=== PATIENT | female | born 1960 | race Caucasian/White ===

== ENCOUNTER 2018-05-13 00:28 | Outpatient (CLI) | payer OTHER, SELFPAY ==
--- NOTE | 2018-05-13 07:45 | DI.MAMMO_ITS ---
SYMPTOM/DIAGNOSIS: SCREENING, Z12.31 MAMMOGRAMS: Mammograms were interpreted according to the usual protocol including computer analysis with CAD system, tomosynthesis and C view imaging. The breasts are heterogenously dense. There are scattered bilateral benign appearing microcalcifications in both breasts. No dominant mass or clumped microcalcification is seen. No gross interval change in appearance in comparison with examinations including 08/2016. CONCLUSION: No specific evidence of malignancy at this time. Routine screening examinations are suggested at yearly intervals in this age group according to the ACS/ACR guidelines. Category 1. Breast density, category C. MQSA ASSESSMENT OF FINDINGS: Negative. Category 1. Patient will receive a letter notifying them of these results. Bi-RADS category C. The breasts are heterogeneously dense, which may obscure small masses.
== END 2018-05-13 00:48 ==
PROVIDERS: PCP Family Medicine; Visit Provider Family Medicine
DX: Z12.31 Encounter for screening mammogram for malignant neoplasm of breast (principal)
CPT/HCPCS: 77063; 77067

== ENCOUNTER 2018-07-06 16:48 | Emergency (ER) | payer OTHER, SELFPAY ==
[2018-07-06 16:53] VITALS: BP 124/64; PULSE 76; RESP 20; TEMP 36.6; O2SAT 98
--- NOTE | 2018-07-06 16:59 | DI.RAD_ITS ---
SYMPTOMS/DIAGNOSIS: RT SCAPULA, TRAUMA WITH DEFORMITY RIGHT SCAPULA AND PA AND LATERAL CHEST: There is a comminuted fracture seen of the distal right clavicle just medial to the acromioclavicular joint. The acromioclavicular joint is well maintained. The medial clavicular fragment is superiorly displaced. The heart size and pulmonary vasculature are within normal limits. The lungs are clear. No effusions or pneumothoraces are identified. IMPRESSION: Comminuted fracture of the lateral right clavicle with superior displacement of the medial fracture fragment. No acute pulmonary process.
[2018-07-06] MEDS: Acetaminophen 500 MG TAB 1000 MG PO (17:34)
[2018-07-06] MEDS: Ibuprofen 800 MG TAB PO (17:36)
--- NOTE | 2018-07-06 18:05 | DI.VRAD_ITS ---
Addendum created by Stewart Fuller MD on 07/06/2018 6:08:58 PM EDT Please note that upon review of the scapula films performed concomitantly, it is noted that the acromioclavicular distance is preserved and that the displacement observed in this chest x-ray is related to a severely comminuted fracture at the distal right clavicle. Please review scapula films performed concomitantly for further details. Initial report created on 07/06/2018 6:05:04 PM EDT EXAM: XR Chest, 2 Views EXAM DATE/TIME: 07/06/2018 5:03 PM CLINICAL HISTORY: 58 years old, female; Injury or trauma; Fall; Initial encounter; Blunt trauma (contusions or hematomas) TECHNIQUE: Imaging protocol: XR of the chest, 2 views. COMPARISON: No relevant prior studies available. FINDINGS: Lungs: Unremarkable. No consolidation. Pleural space: Unremarkable. No pleural effusion. No pneumothorax. Heart/Mediastinum: Unremarkable. No cardiomegaly. Bones/joints: There is significantly increased right acromioclavicular distance (34 mm). There is question of a small comminuted fracture of the right distal clavicle. There is soft tissue swelling about the right shoulder. No other acute skeletal abnormality grossly noted. IMPRESSION: 1. Right acromioclavicular injury/dislocation, as detailed above. Consider correlation with dedicated right shoulder films. 2. No acute cardiopulmonary pathology otherwise noted. Dictated and Authenticated by: Stewart Fuller MD. Ordering:LARRY Turner MD
--- NOTE | 2018-07-06 18:07 | DI.VRAD_ITS ---
EXAM: XR Right Scapula EXAM DATE/TIME: 07/06/2018 5:03 PM CLINICAL HISTORY: 58 years old, female; Injury or trauma; Fall; Initial encounter TECHNIQUE: Imaging protocol: XR Right scapula, complete. COMPARISON: CR XR CHEST 2V PA LATERAL 07/06/2018 5:43 PM FINDINGS: Bones/joints: In these films it is better appreciated that the acromioclavicular joint is preserved with a acromioclavicular distance of 5 mm. There is a severely comminuted fracture of the distal clavicle with cranial displacement of the proximal clavicle approximately 1.3 cm. No evidence of glenohumeral joint dislocation. No other acutely displaced fractures are appreciated. Soft tissues: There is soft tissue swelling about the shoulder. IMPRESSION: Severely comminuted and displaced fracture of the distal clavicle, as detailed above. Dictated and Authenticated by: Stewart Fuller MD. Ordering:LARRY Turner MD
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
[2018-07-06 18:52] VITALS: BP 128/75; PULSE 69; RESP 14; TEMP 37.2; O2SAT 99
[2018-07-06] MEDS: HYDROcodone 5/Acetaminophen 325 TAB PO (19:55)
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
== END 2018-07-06 20:00 | disposition home or self-care (01) ==
PROVIDERS: Emergency Provider Student in an Organized Health Care Education/Training Program; PCP Family Medicine
DX: S42.031A Displaced fracture of lateral end of right clavicle, initial encounter for closed fracture (principal); S43.101A Unspecified dislocation of right acromioclavicular joint, initial encounter; V18.0XXA Pedal cycle driver injured in noncollision transport accident in nontraffic accident, initial encounter; Y93.55 Activity, bike riding
CPT/HCPCS: 90471; 99253; 99284; 71046; 73010; 99285; L3650

== ENCOUNTER 2018-07-06 21:03 | Observation (INO) | payer OTHER, SELFPAY ==
[2018-07-07] VITALS (9 sets, daily range): BP systolic 88–117; BP diastolic 42–73; PULSE 63–80; RESP 12–18; TEMP 35–37; O2SAT 96–99
[2018-07-07] MEDS: Lactated Ringers 1,000 ML 80 ML IV (06:40)
--- NOTE | 2018-07-07 07:02 | HPE_ITS ---
Date of service: 07/07/18 Time of Service: 06:56 Assessment and Plan (1) Displaced fracture of lateral end of right clavicle: Current visit: Yes Status: Acute Pao is a 58-year-old with a comminuted and displaced fracture of the lateral end of the right clavicle. There is significant displacement with likely disruption of the CC ligaments. The skin is tethered and puckered and therefore would benefit from operative stabilization as there is a risk of skin necrosis. I had a long discussion yesterday and again today about the technical details of the surgery. The lateral fragment is really very small. I am quite concerned about the ability to have any reliable fixation of that piece. My plan will be to bridge the AC joint which would help stabilize the CC ligaments and the small fragments of the lateral clavicle. This will have to be removed at a later date. If I am able to identify bony or soft tissue components of the CC ligaments and the lateral piece is large enough to accept good fixation to the plate, then we may be able to avoid the AC joint. However, I find this unlikely. I did review the surgical details in length. I discussed the risk of the procedure to include bleeding, infection, pain, stiffness, numbness over the anterior chest, damage to nerves and vessels, pneumothorax, malunion, nonunion, hardware prominence, hardware failure, loss of reduction, blood clot, need for repeat procedures. She is n.p.o. and will proceed with surgery today. If you tolerate surgery well she can go home later today. Qualifiers: Encounter type: initial encounter Fracture type: closed Qualified Code(s): S42.031A - Displaced fracture of lateral end of right clavicle, initial encounter for closed fracture History of Present Illness Chief Complaint: Right Shoulder Pain Narrative: Pao is a 58-year-old who was seen yesterday in the emergency department. She had a significantly displaced, comminuted, and intra-articular lateral clavicle fracture. I had a long discussion with Pao about treatment options and recommended operative stabilization of this fracture especially since there is some skin tenting. Given the our last night, I recommended performing in the morning. She elected to go home prior to coming back to the hospital for the surgery. She is here this morning to be admitted for surgical fixation of her right clavicle fracture. While she was home she denies any new symptoms. She does have pain with motion but otherwise it is been well controlled with Tylenol and ibuprofen. She denies any numbness or tingling although she has a slight feeling to the shoulder area. She denies any head or neck pain. No headaches. Review of Systems Review of Systems All systems reviewed & are unremarkable except as noted in HPI and below PFSH Social History Smoking/Tobacco Use Status: Never Alcohol Intake: current Alcohol Intake frequency: 0-2 drinks per day Alcohol type: wine Drug use: Never Substance use type: does not use Caregiver/Support person: No Household members: spouse and children Housing: house Pets and animals: No Sexually active: No Do you think of yourself as: straight/heterosexual Current gender identity: female What is your relationship status?: How often do you talk on the phone with friends or family?: twice per week How often do you get together with friends or relatives?: once per week How often do you attend lutheran or congregation services?: 1-3 times per year Do you belong to any clubs or organized social groups?: yes Panel score (0-1 are the most socially isolated patients): 3 What type of physical activity do you participate in: other Details: spinning and yoga Duration: 45-60 minutes/day Frequency: 3-4 times per week Niya/Gnosticism: Restorationist Special niya needs: No Do you feel safe at home: Yes Do you feel safe in your relationship?: Yes Meds Home Medications Medication Instructions Recorded Confirmed Type aspirin [Aspirin Low-Strength] 81 mg PO DAILY tab-cap 07/01/14 07/06/18 History calcium carbonate-vitamin D3 1 tab PO BID #60 tab-cap 07/07/15 07/06/18 History Allergies Allergy/AdvReac Type Severity Reaction Status Date / Time No Known Allergies Allergy Unverified 07/06/18 16:57 Exam Narrative Exam Narrative: Comfortably sitting in a chair. Head is normocephalic and atraumatic. Breathing comfortably without notable difficulty or work. Right radial pulse is regular. Right shoulder shows continuing ecchymosis. There is puckering of the posterior skin of the shoulder with palpable distal clavicle underneath. No further breaks the skin. No active bleeding. Sensation intact light touch over the axillary, median, radial, ulnar nerves.
--- NOTE | 2018-07-07 07:19 | DI.RAD_ITS ---
SYMPTOMS/DIAGNOSIS: RT CLAVICLE FRACTURE RIGHT CLAVICLE IN THE OR: Fluoroscopy Time: 37.2 sec Fluoroscopy was utilized by Dr. Gutiérrez during the reduction and internal fixation of the right clavicular fracture. Sideplate and screws are seen transfixing the fracture which appears well aligned. Please refer to the procedure report for complete details.
[2018-07-07] MEDS: Bupivacaine 0.5% Pres-Free 30 ML VIAL (09:49)
--- NOTE | 2018-07-07 10:24 | DSE_ITS ---
Date of service: 07/07/18 Time of Service: 12:24 DS: Diagnosis Discharge Diagnosis (1) Displaced fracture of lateral end of right clavicle: Status: Acute Discharge Plan Disposition Patient Disposition: HOME Condition: Good Discharge Details Reason For Visit: COMMINUTED DISTAL CLAVICLE FRACTURE Admit Date/Time: 07/06/18 21:03 Admit Provider: Evan Gutiérrez Attending Provider: Evan Gutiérrez [facility] Course: Pao was brought into the hospital for operative fixation of a distal clavicle fracture with significant displacement and threatening of the skin. She was admitted on the morning of surgery. She tolerated procedure well and was returned to the medical surgical floor. She was stable following surgery with good pain control. She is thus deemed ready for discharge home. Home Meds and New Rx's Prescriptions: New hydrocodone-acetaminophen 5-325 mg tablet 1 tab PO Q6H PRN PRN (Reason: pain) Qty: 4 RF: 0 acetaminophen 500 mg tablet 500 mg PO Q6H PRN PRN (Reason: pain) Qty: 60 RF: 3 ibuprofen 600 mg tablet 600 mg PO TID PRNQty: 60 RF: 3 Continued aspirin [Aspirin Low-Strength] 81 MG tablet,chewable 81 mg PO DAILY RF: 0 calcium carbonate-vitamin D3 1 EACH tablet 1 tab PO BID Qty: 60 RF: 0 Discharge Instructions Additional Instructions: Activity: You should stay in the sling for the first 2 weeks. You may come out of the sling for gentle motion and hygiene but should largely remain in the sling to allow the incision site to heal. Gentle motion of the elbow, hand, wrist, and fingers is okay and encouraged after the first few days, but KEEP THE ELBOW SUPPORTED. You may apply ice directly over the incision/dressing. Medications: - You should take Tylenol and Ibuprofen around the clock. - You have been prescribed Hydrocodone for breakthrough pain. Dressings: - The initial surgical dressing should stay in place for 3 days. It can stay on for longer but if it is soiled or gets too wet, you may remove it and replace with some dry gauze and tape. - You may shower after 3 days and get the wound wet. To protect the dressing, you can place some cling wrap over the incision and avoid direct spray to the incision/wound. Follow-up: 10-14 days Stand Alone Forms: Nursing Discharge Form Referrals: Evan Gutiérrez MD [ [facility] STAFF PHYSICIAN] - (Call Sunday to schedule a follow-up appointment) Activity:: Stay in sling except for hygiene. Equipment/Supplies:: No Equipment Needed Diet:: As Tolerated Discharge Orders Discharge Orders: Discharge Order (Routine); Ordered 07/07/18 Ordered By: Evan Gutiérrez Discharge Data Discharge Date/Time-TO BE ENTERED AT DEPARTURE: 07/07/18 11:42 DS: Data Vitals/I&O Vitals and I&O: Vital Signs Temperature 36.4 C L 07/07/18 07:18 Temperature Source Tympanic 07/07/18 07:18 Pulse 67 07/07/18 07:18 Pulse Rhythm Regular 07/07/18 07:18 Respiratory Rate 18 07/07/18 07:18 Respiratory Effort Non-Labored 07/07/18 07:18 Respiratory Depth Normal 07/07/18 07:18 Respiratory Pattern Normal 07/07/18 07:18 Blood Pressure 117/73 07/07/18 07:18 Pulse Oximetry 97 07/07/18 07:18 Oxygen Delivery Method Room Air 07/07/18 07:18 Oxygen Flow Rate 0 07/07/18 07:18 Pain Level 2 07/07/18 07:18 Intake & Output 07/06/18 07/06/18 07/07/18 11:59 23:59 11:59 Intake Total 1000 / 1000 Output Total 100 / 100 Balance 900 / 900 Weight 53.524 kg Intake: IV 1000 / 1000 Output: Estimated Blood Loss 100 / 100 Other: Urine Appearance Clear [facility] Medical History 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 Brother No problems noted. Brother No problems noted. Daughter No problems noted. Daughter No problems noted. Social History Smoking/Tobacco Use Status: Never Alcohol Intake: current Alcohol Intake frequency: 0-2 drinks per day Alcohol type: wine Drug use: Never Substance use type: does not use Caregiver/Support person: No Household members: spouse and children Housing: house Pets and animals: No Sexually active: No Do you think of yourself as: straight/heterosexual Current gender identity: female What is your relationship status?: How often do you talk on the phone with friends or family?: twice per week How often do you get together with friends or relatives?: once per week How often do you attend moravian or roman catholic services?: 1-3 times per year Do you belong to any clubs or organized social groups?: yes Panel score (0-1 are the most socially isolated patients): 3 What type of physical activity do you participate in: other Details: spinning and yoga Duration: 45-60 minutes/day Frequency: 3-4 times per week Niya/Pentecostal: Restorationism Special niya needs: No Do you feel safe at home: Yes Do you feel safe in your relationship?: Yes
--- NOTE | 2018-07-09 10:09 | ROE_ITS ---
DATE OF SURGERY: July 07, 2018 PREOPERATIVE DIAGNOSIS: Comminuted lateral clavicle fracture, right side. POSTOPERATIVE DIAGNOSIS: Same. SURGERY: Open reduction and internal fixation with bridge plating of the distal clavicle onto the ac romion. SURGEON: Evan Gutiérrez M.D. TICKET SALES AGENT: Pop Marvin PA-C ANESTHESIA: General. FINDINGS: There was a significantly comminuted lateral clavicle fragment. The AC joint was intact a nd the ligaments of the AC joint were intact. There was comminution seen start at 8 mm from the dist al end of the clavicle. There was some inferior fragmentation and some anterior fragmentation. The medial clavicle portion was tethered through the trapezius musculature. The comminution at the level of the fracture site made reduction quite difficult. The lateral clavicle piece was difficult to re duce. Therefore I used a bridge plate technique from the clavicle onto the acromion. COMPLICATIONS: None. DISPOSITION: The patient was awakened from anesthesia and taken to the PACU in a stable condition. INDICATION FOR PROCEDURE: Pao is a 58-year-old who was mountain biking yesterday and fell directly onto the right shoulder. She suffered a displaced lateral clavicle fracture. There was significant displacement of the medial clavicular portion, representing a complete rupture of the CC ligaments. There was also tenting of the skin and therefore I recommended operative fixation. I reviewed the r isks of the procedure to include bleeding, infection, pain, stiffness, damage to nerves and vessels, damage to muscles and tendons, malunion, nonunion, arthritis, hardware prominence, hardware failure, need for repeat procedures, blood clot. Despite these risks, she elected to proceed. PROCEDURE DESCRIPTION: Pao was greeting in the preoperative holding area. Her identity was [facility]. The site was previously marked upstairs in the hospital room and the consent was signed there a s well. Her history and physical was previously performed. She was then taken back to the Operating Room. She was placed in the supine position. A general anesthetic was administered. She was then positioned in the beach chair position. All bony prominences were well padded. The left arm was pl aced on a well-padded arm skelton. The head was placed in the neutral position with a foam head holde r and secured. The right arm was placed into her lap. The right arm was then prepped with ChloraPre p and draped in a standard fashion. Prophylactic antibiotics in the form of Cefazolin were given. A time-out was performed for safe surgery. An approximately 12 cm incision was made along Gene's lines over the anterior aspect of the clavicl e and where the clavicle should be located given the significant posterior superior displacement. Th e soft tissues were injected with 0.5% Bupivacaine. The incision was taken down through the skin sha rply. Deeper dissection was done bluntly and there were no branches of the supraclavicular nerves id entified. The platisma was incised with electrocautery and this was taken down straight onto the cla vicle. There was notable stripping of the distal aspect of the medial clavicle piece. This piece jodi bravo punctured through the trapezius muscle and stuck on the fascia. It was able to be reduced out of t he fascia quite easily. There was comminution superiorly. There was a small spike drifting anterior ly, which also wedged from superior lateral to inferior medial. There was an inferior piece which jodi bravo also palpated and seemed to be attached to the lateral piece, although there was some comminution. There were 3 or 4 very small pieces which had no soft tissue attachments to them. I was able to get the fragment reduced, but the lateral clavicle portion was grossly unstable. The AC ligament was st ill attached and was not dissected down. However, this fragment was difficult to hold in place given its small size and comminution. It was also measuring on the superior side only 8 mm and therefore was not large enough to accept the lateral extension of the distal clavicle plate. Therefore, I made the decision to do a bridge plating technique. This was originally planned in case the lateral clav icle was too small for fixation. I ran a K-wire through the lateral aspect of the acromion into the clavicle to help hold the reduction. Again it was very difficult to get the lateral clavicle piece a ligned appropriately, as it was just too small. A right-sided lateral clavicle plate was then placed and this was slid over to where the lateral clavicle portion was placed on the acromion. This was c lamped in position. Some bending was performed in order to fit the plate onto the bone. X-ray was u sed to confirm appropriate positioning. I then placed two cortical non-locking screws into the media l portion of the clavicle fracture. This helped bring the plate down to bone. I then reduced the pl ate down onto the acromion using an upper force of the arm and also downward force on the clavicle. The small lateral clavicle piece was positioned underneath the plate and in what appeared to be a mos tly reduced position. It was held there while I placed a non-locking screw into the acromion. This was able to bring the plate down to bone. I then filled in the remainder of the holes with locking s crews. These were all drilled bicortically, although the screws tended to be placed just shy going t hrough the deep cortex. Each had excellent purchase into bone with no significant signs of osteoporo sis in this area. X-ray was then confirmed to show that the clavicle was in line with the top of the acromion and the plate was well positioned on top of the acromion. However it did now look like the re was some displacement of the lateral clavicle portion. Direct visualization did show that the dis justa piece had slightly rotated down or tilted down. I'm assuming this was from over-compression of t he area. Any attempt at moving this piece was unsuccessful, as it was pinned underneath the plate an d squeezed between the acromion and the medial clavicle portion. The joint space did not look over-c ompressed. Therefore, I did not take out the screws to reduce this piece. There was some inferior c omminution, but I was unable to reduce it with any clamps or a Lorado and so therefore I did not try t o address it with a screw, as I thought this may induce too much rigidity to the construct. The woun d was then thoroughly irrigated. There was some comminution gapping anteriorly, which was filled wit h a little bit of demineralized bone matrix and remnant bone from the initial exposure. The deep mus cular layer of the deltotrapezial fascia was reapproximated, as well as the clavipectoral fascia. Th e platisma was hard to identify, but it was closed in a separate layer on the medial portion. The de ep tissues were closed with a #3-0 Vicryl. The skin was closed with a running #4-0 Monocryl. All th e remainder tissues were injected with an additional 0.5% Bupivacaine and 20 cc's of Exparel. Skin g lue was applied over the wound followed by a Mepilex Silver Dressing. She was placed back into a sim ple sling. At the end of the case all counts were correct. She was awakened from anesthesia and ta hector to the PACU in a stable condition.
== END 2018-07-07 11:42 | disposition home or self-care (01) ==
PROVIDERS: Admitting Provider Student in an Organized Health Care Education/Training Program; PCP Family Medicine; Visit Provider Student in an Organized Health Care Education/Training Program
PROC: (CPT 23515; principal; 2018-07-07 08:00)
DX: S42.031A Displaced fracture of lateral end of right clavicle, initial encounter for closed fracture (principal); V19.88XA Pedal cyclist (driver) (passenger) injured in other specified transport accidents, initial encounter
CPT/HCPCS: 23515; C1713; NC; 73000; G0378; J0131; J0690; J1100; J1885; J2370; J2405

== ENCOUNTER 2018-07-24 14:42 | Outpatient (CLI) | payer OTHER, SELFPAY ==
--- NOTE | 2018-07-24 14:38 | DI.RAD_ITS ---
SYMPTOMS/DIAGNOSIS: F/U OPEN REDUCTION AND INTERNAL FIXATION OF RIGHT CLAVICLE RIGHT CLAVICLE: Comparison is 07/07/18. There has been no change in alignment of the sideplate and screws transfixing the comminuted fracture involving the distal right clavicle. RIGHT SHOULDER: A single view was obtained. There is a sideplate spanning the acromioclavicular joint, which is stable in appearance. There is a comminuted fracture of the distal right clavicle, which is unchanged in alignment. No new fractures are seen.
== END 2018-07-24 15:02 ==
PROVIDERS: PCP Family Medicine; Visit Provider Student in an Organized Health Care Education/Training Program
DX: S42.031D Displaced fracture of lateral end of right clavicle, subsequent encounter for fracture with routine healing (principal)
CPT/HCPCS: 73000; 73030

== ENCOUNTER 2018-08-21 15:10 | Outpatient (CLI) | payer OTHER, SELFPAY ==
--- NOTE | 2018-08-21 14:16 | DI.RAD_ITS ---
SYMPTOM/DIAGNOSIS: F/U ORIF RIGHT CLAVICLE; Three views were obtained and show previously described plate and screw fixation of fracture of the distal clavicle. In comparison with the previous examination, there is now a fractured screw visible which is the most proximally located of the distal group of fixation screws. No other significant change is seen.
== END 2018-08-21 15:30 ==
PROVIDERS: PCP Family Medicine; Visit Provider Student in an Organized Health Care Education/Training Program
DX: S42.031D Displaced fracture of lateral end of right clavicle, subsequent encounter for fracture with routine healing (principal)
CPT/HCPCS: 73000

== ENCOUNTER 2018-09-30 13:56 | Outpatient (CLI) | payer OTHER, SELFPAY ==
--- NOTE | 2018-09-30 13:35 | DI.RAD_ITS ---
SYMPTOM/DIAGNOSIS: F/U FX RIGHT CLAVICLE: The examination is compared with the previous examinations of 07/24 and 08/21. The previously described plate and screw fixation transfixing the distal clavicle and acromion is seen. No change in alignment of the comminuted fracture of the distal clavicle. However, the fixation screws of the acromion appear to have pulled out of the acromion since the examination of 08/21 and one of the screws is fractured and the distal portion of the screw remains in the acromion. CONCLUSION: Fixation screws of the acromion associated with the acromioclavicular fixation plate have become dislodged. Please see above discussion.
== END 2018-09-30 14:16 ==
PROVIDERS: PCP Family Medicine; Visit Provider Student in an Organized Health Care Education/Training Program
DX: S42.031D Displaced fracture of lateral end of right clavicle, subsequent encounter for fracture with routine healing (principal)
CPT/HCPCS: 73000

== ENCOUNTER 2018-10-01 08:48 | Day surgery (SDC) | payer OTHER, SELFPAY ==
[2018-10-01] VITALS (7 sets, daily range): BP systolic 82–114; BP diastolic 52–74; PULSE 46–70; RESP 13–18; TEMP 36.3–36.7; O2SAT 98–100
[2018-10-01] MEDS: Lactated Ringers 1,000 ML 80 ML IV (09:38)
--- NOTE | 2018-10-01 09:46 | SUR.PREOP ---
10/01/18 0900 Upon arrival to the Day Surgery unit, pt handed this nurse a letter from her brother outlining the family history of their blood clotting disorder. This nurse noted that it would be scanned to the chart and would be reported off to the OR and the MD would be informed.
--- NOTE | 2018-10-01 11:28 | DI.RAD_ITS ---
SYMPTOM/DIAGNOSIS: PAINFUL HARDWARE C-ARM: Fluoroscopy Time: 23.7 seconds C-arm fluoroscopy was utilized by Dr. Gutiérrez during apparent hardware removal. Hard copy shows removal of previously noted plate and screw fixation from the clavicle and acromion.
[2018-10-01] MEDS: ceFAZolin 2 GM/50 ML BAG IVPB (11:47)
--- NOTE | 2018-10-01 12:19 | PDOC.DSDIS_ITS ---
Discharge Plan Disposition Patient Disposition: HOME Condition: Good Discharge Details Reason For Visit: PROMINENT CLAVICLE FX (R) Attending Provider: Evan Gutiérrez Primary Care Provider: Barbara Ruffin Home Meds and New Rx's Prescriptions: Continued aspirin [Aspirin Low-Strength] 81 MG tablet,chewable 81 mg PO DAILY RF: 0 calcium carbonate-vitamin D3 1 EACH tablet 1 tab PO BID Qty: 60 RF: 0 hydrocodone-acetaminophen 5-325 mg tablet 1 tab PO Q6H PRN PRN (Reason: pain) Qty: 4 RF: 0 acetaminophen 500 mg tablet 500 mg PO Q6H PRN PRN (Reason: pain) Qty: 60 RF: 3 ibuprofen 600 mg tablet 600 mg PO TID PRNQty: 60 RF: 3 Discharge Instructions Stand Alone Forms: [facility] Shoulder Arthro Referrals: Evan Gutiérrez MD [ [facility] STAFF PHYSICIAN] - Equipment/Supplies: Sling Activity:: Activity as Tolerated Remove Dressings/Wound Care:: 72 hours Shower/Bathe:: 72 hours Diet:: As Tolerated Discharge Orders Discharge Orders: Discharge Order (Routine); Ordered 10/01/18 Ordered By: John Gibson DS: Diagnosis Discharge Diagnosis (1) Painful orthopaedic hardware: Status: Acute
--- NOTE | 2018-10-02 13:43 | ROE_ITS ---
REPORT OF OPERATIVE PROCEDURE DATE OF SURGERY October 01, 2018 PREOPERATIVE DIAGNOSES Prominent orthopedic hardware of the right clavicle, broken screws of right clavicle hardware. POSTOPERATIVE DIAGNOSES Prominent orthopedic hardware of the right clavicle, broken screws of right clavicle hardware. SURGERY Removal of hardware from right clavicle. SURGEON Evan Gutiérrez M.D. ANESTHESIA General. FINDINGS The clavicular plate had pulled off the acromion. One screw was left behind in the acromion, which wa s able to be removed. The fracture was healed. It showed no signs of instability or nonunion. ESTIMATED BLOOD LOSS Minimal. COMPLICATIONS None. COMPLICATIONS None. DISPOSITION The patient was awakened from anesthesia and taken to the PACU in a stable condition. INDICATION FOR PROCEDURE Pao is a 58-year old who suffered a near open fracture of her lateral clavicle on the right shoulde r. This occurred on a weekend and needed to be reduced to prevent skin necrosis. Given the comminutio n laterally, I performed a bridging technique using a lateral clavicle plate. She did well initially, but then during followup, was noted to have broken screws and eventually pull off of the plate, whic h lead to a prominent plate, which caused pain. Given the duration of time, I thought it was safe [facility] to remove this plate. The fracture appeared to be healed on x-rays. Therefore, I recommended hard leonardo removal. I reviewed the risks of the procedure to include bleeding, infection, pain, stiffness, re-fracture, nonunion, malunion, numbness and tingling, need for repeat procedures. Despite these ris ks, she elected to proceed. PROCEDURE DESCRIPTION Pao was greeting in the preoperative holding area. Her identity was confirmed and the correct side was identified and marked. The consent was reviewed with the patient and signed. Her history and phys ical was updated. She was then taken back to the Operating Room and placed in the supine position. A general anesthetic was given. She was then placed into a slightly elevated, lazy-beach chair [facility], with about 30 degrees flexion at the waist. Her head was secure. Her right shoulder area was prepp ed with ChloraPrep and draped in a standard fashion. Prophylactic antibiotics in the form of Cefazoli n were given. A time-out was performed for safe surgery. Previous incision was then opened up. This was taken down sharply through the skin and platysma. The fascia overlying the plate was elevated and incised. The plate was easily visible. I was then able to remove all screws from the plate, both 2.7 and 3.5-mm screws. The plate was able to be removed witho ut any difficulty. The fracture site was investigated and it did not show any signs of significant m alunion, nor nonunion. I was able to manipulate the fracture site and it showed no signs of movement through the fracture. Radiographs were also performed in a static and live setting to confirm this. T here was one broken screw, which had to be removed. This was off the posterior aspect of the acromion . X-ray was utilized to localize the screw. It was noted to be inside the acromion still. Using needl e drivers, I was able to spin it out. X-ray once again confirmed that all screws were removed. The wo und was then thoroughly irrigated. The soft tissues and deep tissues were injected with 0.5% bupivaca ine with epinephrine. The deep fascia was closed with #0-Vicryl. The deeper layer including the platy sma was closed with #2-0 Vicryl. The skin was closed with a running #3-0 Monocryl. A Mepilex Silver d ressing was applied. She was placed into a sling. She tolerated the procedure well without any notabl e complications. She was transferred back to the PACU in stable condition.
== END 2018-10-01 14:45 | disposition home or self-care (01) ==
PROVIDERS: PCP Family Medicine; Visit Provider Student in an Organized Health Care Education/Training Program
PROC: (CPT 20680; principal; 2018-10-01 10:45)
DX: T84.84XA Pain due to internal orthopedic prosthetic devices, implants and grafts, initial encounter (principal); T84.218A Breakdown (mechanical) of internal fixation device of other bones, initial encounter; S42.031D Displaced fracture of lateral end of right clavicle, subsequent encounter for fracture with routine healing; X58.XXXD Exposure to other specified factors, subsequent encounter
CPT/HCPCS: 20680; 73000; J0690; J1100; J1885; J2405; L3650

== ENCOUNTER 2018-10-11 09:18 | Outpatient (CLI) | payer OTHER, SELFPAY ==
--- NOTE | 2018-10-11 08:51 | DI.RAD_ITS ---
SYMPTOM/DIAGNOSIS: F/U HARDWARE REMOVAL RIGHT SHOULDER: Comparison is made with 31 July 2018 The previously noted fixation plate has been removed. There has been no change in the alignment of the distal clavicle fracture.
== END 2018-10-11 09:38 ==
PROVIDERS: PCP Family Medicine; Visit Provider Physician Assistant
DX: Z47.89 Encounter for other orthopedic aftercare (principal); T84.84XD Pain due to internal orthopedic prosthetic devices, implants and grafts, subsequent encounter; T84.218D Breakdown (mechanical) of internal fixation device of other bones, subsequent encounter; S42.031D Displaced fracture of lateral end of right clavicle, subsequent encounter for fracture with routine healing
CPT/HCPCS: 73000

== ENCOUNTER 2018-10-28 11:33 | Outpatient (CLI) | payer OTHER, SELFPAY ==
--- NOTE | 2018-10-28 10:56 | DI.RAD_ITS ---
SYMPTOMS/DIAGNOSIS: F/U HARDWARE REMOVAL RIGHT CLAVICLE: When compared with the previous examination of 10/11/18, there has been no change in the alignment of the distal clavicular fracture. Further filling in of the fracture line is demonstrated.
== END 2018-10-28 11:53 ==
PROVIDERS: PCP Family Medicine; Visit Provider Student in an Organized Health Care Education/Training Program
DX: S42.031D Displaced fracture of lateral end of right clavicle, subsequent encounter for fracture with routine healing (principal)
CPT/HCPCS: 73000

== ENCOUNTER 2019-01-03 06:14 | Day surgery (SDC) | payer OTHER, SELFPAY ==
[2019-01-03 06:28] VITALS: BP 110/71; PULSE 72; RESP 16; TEMP 36.7; O2SAT 96
[2019-01-03] MEDS: Lactated Ringers 1,000 ML 80 ML IV (06:59)
--- NOTE | 2019-01-03 07:07 | W.PM.HP.N ---
Date of service: 01/03/19 Time of Service: 07:07 Assessment and Plan Assessment and plan (1) Family history of colon cancer: Status: Acute Assessment and plan: I advised colonoscopy. The procedure was described including the risks of perforation with need for surgery or bleeding. Prep instructions discussed. Patient agrees to proceed. History of Present Illness Narrative: 58 y/o female presents for colonoscopy screening. Her last screening was in 2013, which was remarkable for sigmoid diverticulosis. She reports a family history of colon cancer in her father. She denies any changes in bowel habits including bloody or black tarry stools, abdominal pain, diarrhea or constipation. She denies constitutional symptoms. Denies use of marijuana or any other recreational or illegal drugs. She denies chest pain, palpitations, dyspnea or dyspnea with exertion. She denies family history of adverse reactions or complications with anesthesia. She reports following her last Colonoscopy she felt awful following the procedure for a few days. Review of Systems All systems reviewed & are unremarkable except as noted in HPI and below PFSH Medical History Achilles tendinosis of both lower extremities (Chronic 08/28/16) Family history of colon cancer in father (Chronic) Fibrocystic disease of breast (Chronic) History of postoperative nausea and vomiting (Acute) 2013 colonoscopy awful for days Migraine (Chronic) Normal colonoscopy (Acute) Last [place]: 12/12/13 w/ Dr. Adelita Murrell, mild sigmoid diverticula, repeat 5 years due to family hx. mg Varicose veins of lower extremity (Chronic) right leg Surgical History Displaced fracture of lateral end of right clavicle (Inactive 07/07/18) DOS of ORIF: 07/07/18 S/P hardware removal DOS: 10/01/18 Hx of colonoscopy (Chronic) Family History Mother , 81 Osteoporosis Father Heart disease Hyperlipidemia Neoplasm COLON Sister Osteopenia Brother Prostate cancer Maternal Grandfather Pancreatic cancer Paternal Grandfather Heart disease Paternal Grandmother Heart disease Maternal Grandmother Heart disease Stroke MATERNAL FAMILY HX Osteoporosis MOTHERS TWIN Neoplasm MOTHER TWIN-OVARIAN MOTHERS SISTER-OVARIAN MOTHERS BROTHER-UNKNOWN TYPE Sister No problems noted. Brother No problems noted. Brother No problems noted. Daughter No problems noted. Daughter No problems noted. Social History Smoking/Tobacco Use Status: Never Alcohol Intake: current Alcohol Intake frequency: a few times a week Alcohol type: wine Drug use: Never Substance use type: does not use Caregiver/Support person: No Household members: spouse and children Housing: house Pets and animals: No Sexually active: No Do you think of yourself as: straight/heterosexual Current gender identity: female What is your relationship status?: How often do you talk on the phone with friends or family?: twice per week How often do you get together with friends or relatives?: once per week How often do you attend methodist or rastafarian services?: 1-3 times per year Do you belong to any clubs or organized social groups?: yes Panel score (0-1 are the most socially isolated patients): 3 What type of physical activity do you participate in: other Details: spinning and yoga Duration: 45-60 minutes/day Frequency: 3-4 times per week Niya/Anabaptism: [employer]aritan Special niya needs: No Do you feel safe at home: Yes Do you feel safe in your relationship?: Yes Meds Home Medications and Allergies Home Medications Medication Instructions Recorded Confirmed Type aspirin [Aspirin Low-Strength] 81 mg PO DAILY tab-cap 07/01/14 01/03/19 History calcium carbonate-vitamin D3 1 tab PO BID #60 tab-cap 07/07/15 01/03/19 History acetaminophen 500 mg PO Q6H PRN PRN #60 tab 07/07/18 01/03/19 Rx ibuprofen 600 mg PO TID PRN #60 tab 07/07/18 01/03/19 Rx bisacodyl 5 mg tablet,delayed 5 mg PO ONCE #4 tab 10/31/18 12/30/18 Rx release polyethylene glycol 3350 17 238 g PO ONCE #238 gm 10/31/18 01/03/19 Rx gram/dose oral powder Allergies Allergy/AdvReac Type Severity Reaction Status Date / Time No Known Allergies Allergy Verified 01/03/19 06:35 Exam Const General: healthy appearing and not in acute distress Nutritional Appearance: well nourished Orientation: oriented x3 HENMT Head: normal to inspection Eyes Sclera: sclerae normal Pupils: PERRL Neck Neck: no lymphadenopathy Thyroid: thyroid normal Carotids: no bruits Resp Effort & Inspection: normal respiratory effort Auscultation: clear to auscultation bilaterally and no wheezes Cardio Rate: regular rate Rhythm: regular rhythm GI Inspection: non-distended Palpation: soft, no hepatosplenomegaly, no hernias and nontender Skin General skin exam: no rashes or lesions noted Neuro General: alert Cognition: normal cognition Extrem General: normal to inspection Psych Affect: normal affect Attitude: cooperative Results Last Vital Signs Temp 98.1 F 01/03/19 06:28 Pulse 72 01/03/19 06:28 Resp 16 01/03/19 06:28 BP 110/71 01/03/19 06:28 Pulse Ox 96 01/03/19 06:28
--- NOTE | 2019-01-03 07:51 | W.PM.DSUDISC ---
Discharge Plan Disposition Patient Disposition: HOME Condition: Good Discharge Details Reason For Visit: Colonoscopy Attending Provider: Olya Hayden Primary Care Provider: Barbara Ruffin Home Meds and New Rx's Prescriptions: Continued aspirin [Aspirin Low-Strength] 81 MG tablet,chewable 81 mg PO DAILY RF: 0 calcium carbonate-vitamin D3 1 EACH tablet 1 tab PO BID Qty: 60 RF: 0 acetaminophen 500 mg tablet 500 mg PO Q6H PRN PRN (Reason: pain) Qty: 60 RF: 3 ibuprofen 600 mg tablet 600 mg PO TID PRNQty: 60 RF: 3 Discontinued polyethylene glycol 3350 17 gram/dose powder 238 g PO ONCE Qty: 238 RF: 0 bisacodyl [Dulcolax (bisacodyl)] 5 mg tablet,delayed release (DR/EC) 5 mg PO ONCE Qty: 4 RF: 0 Discharge Instructions Additional Instructions: Findings: Your colonoscopy showed diverticulosis. Follow up: Plan for colonoscopy in 5 years. Please call if you develop: fevers >101.5 Nausea or Vomiting Abdominal pain that is not transient DAY SURGERY UNIT POST COLONOSCOPY INSTRUCTIONS 1. Because there will be medication in your system for the next 24 hours, you may feel a little sleepy. Your coordination will be affected. Therefore: a. Do not drive or operate dangerous equipment for 24 hours. b. Do not drink alcohol beverages for 24 hours (not even beer). c. Plan to go home and rest for the day. 2. Generally there are no restrictions on your activity after a day or so has gone by, but you may feel a bit fatigued for a few days. 3 After you arrive home you may have a light meal and return to a normal diet as you can tolerate it without feeling sick to your stomach. 4. After surgery, you may feel pain or discomfort. This should be only transient, but if it persists please contact your doctor. 5. If there are any questions regarding the findings of your procedure, please feel free to contact your doctor. 6. If you are unable to contact your doctor with a problem, contact the hospital at [phone]. 7. Continue all your regular medications unless directed otherwise. I understand the above instructions and have no questions. Signature of Patient or Responsible Adult Escort Date/Time Name of Responsible Adult Escort Signature of Nurse Date/Time Activity:: Activity as Tolerated Diet:: As Tolerated Discharge Orders Discharge Orders: Discharge Order (Routine); Ordered 01/03/19 Ordered By: Olya Hayden DS: Diagnosis Discharge Diagnosis (1) Family history of colon cancer: Status: Acute (2) Diverticulosis: Status: Acute
[2019-01-03 08:25] VITALS: BP 102/69; PULSE 66; RESP 18; TEMP 36.6; O2SAT 99
--- NOTE | 2019-01-03 10:10 | COLE_ITS ---
DATE OF PROCEDURE: January 03, 2019 PREOPERATIVE DIAGNOSIS: Family history of colon cancer. POSTOPERATIVE DIAGNOSIS: Diverticulosis. PROCEDURE: Colonoscopy. SURGEON: Olya Hayden M.D. ANESTHESIA: General. INDICATIONS: This is a 58-year-old woman who presents for high-risk screening colonoscopy. Her [facility] was treated for colon cancer. The patient's last colonoscopy in 2013 showed diverticulosis. PROCEDURE: She was placed in the left Flores position. Propofol was titrated to sedation. Digital re ctal examination revealed no abnormalities. The scope was advanced to the cecum without difficulty. The ileocecal valve and appendiceal orifice were clearly identified. Her prep was excellent. The s cope was slowly withdrawn with no abnormalities seen within the ascending, transverse colon. In the descending and sigmoid regions she had a moderate amount of diverticular change. The rectum was norm al, including on retroflex view. She tolerated the procedure well and was stable to recovery. With her family history of colon cancer, she will need a follow-up colonoscopy again in five years. cc: Barbara Ruffin M.D.
== END 2019-01-03 08:58 | disposition home or self-care (01) ==
PROVIDERS: PCP Family Medicine; Visit Provider Surgery
PROC: 0DJD8ZZ Inspection of Lower Intestinal Tract, Via Natural or Artificial Opening Endoscopic (ICD-10-PCS; CPT 45378; principal; 2019-01-03 07:30)
DX: Z80.0 Family history of malignant neoplasm of digestive organs (principal); K57.20 Diverticulitis of large intestine with perforation and abscess without bleeding; Z12.11 Encounter for screening for malignant neoplasm of colon
CPT/HCPCS: 45378; NC

== ENCOUNTER 2020-05-10 15:38 | Outpatient (REF) | payer OTHER, SELFPAY ==
--- NOTE | 2020-05-10 11:40 | PAPFT_PTH ---
PATIENT: Pao Mir LOC: [facility] U#:[id number] AGE/SX: 59/F ROOM: RE05/10/[address]: Barbara Ruffin MD : [id number] BED: DIS: 05/10/2020 SPEC #: [id number] RECD: 05/11/20 12:57 STATUS: MIRIAM REBhanu #: [id number] LIT: 05/10/20 11:[address]: Barbara Ruffin DEPT: [facility] Cytology RECD BY: Madisyn Nava Tissues: 1 - CX/ENDOCX FOR PAP SMEARS Procedures: PAP THIN PREP/UVM Screening HPV DNA PROBE Comments: [id number]
== END 2020-05-10 15:39 | disposition home or self-care (01) ==
LOC: LBN 15:38
PROVIDERS: PCP Family Medicine; Visit Provider Family Medicine
DX: Z12.4 Encounter for screening for malignant neoplasm of cervix (principal); Z11.51 Encounter for screening for human papillomavirus (HPV)
CPT/HCPCS: 88142; 87624

== ENCOUNTER 2020-05-24 02:22 | Outpatient (CLI) | payer OTHER, SELFPAY ==
--- NOTE | 2020-05-24 07:15 | DI.MAMMO_ITS ---
EXAM: MAMMO SCREENING CLINICAL HISTORY: screening,Z12.39. TECHNIQUE: Bilateral full field digital CC and MLO mammographic images were obtained with 3D tomosyn thesis and utilizing computer aided detection (CAD). COMPARISON: Prior mammograms dating back to 2012, the most recent being May 2018. FINDINGS: Fibroglandular tissue is again noted be moderately dense, this decreasing the sensitivity of the mamm ogram for finding hidden underlying lesions. There are no new spiculated masses nor malignant appearing microcalcification groups. Numerous benign microcalcifications are again noted in both breast. There is no significant architectural distortion nor skin thickening-retraction. IMPRESSION: Dense bilateral fibroglandular tissue. No obvious radiographic evidence of malignancy. BI-RADS Category 1 - Negative Breast Density - Category C - Heterogeneously dense Breast density Category C or D implies that the patient has dense breast tissue. Dense breast tissue can make it harder to find cancer on a mammogram. Dense breast tissue is also associated with an incr eased risk of breast cancer. This information about the result of the mammogram report was provided to the patient to raise their awareness. Use this report when you speak with the patient about their risks for breast cancer, which includes their family history. At that time, you may recommend additional screening tests (Ultrasoun d or MRI) as these tests may add significant information. A negative radiographic report should not delay biopsy if a dominant or clinically suspicious mass is present. Up to ten percent of cancers are not identified on mammography. A negative report may reinforce clinical impression. Adenosis and dense breasts may obscure an underlying neoplasm. False positive reports average 6 to 10%. Patient will receive a letter notifying them of these results.
== END 2020-05-24 02:42 ==
PROVIDERS: PCP Family Medicine; Visit Provider Family Medicine
DX: Z12.31 Encounter for screening mammogram for malignant neoplasm of breast (principal)
CPT/HCPCS: 77063; 77067

== ENCOUNTER 2020-05-24 04:16 | Outpatient (CLI) | payer OTHER, SELFPAY ==
[2020-05-24 09:46] LABS: Calculated LDL 141 mg/dL (<100); Cholesterol 212 mg/dL (<200); Glucose 77 mg/dL (74-106); HDL Cholesterol 56 mg/dL (40-60); Triglyceride 76 mg/dL (<150)
== END 2020-05-24 04:17 | disposition home or self-care (01) ==
LOC: LBO 04:16
PROVIDERS: PCP Family Medicine; Visit Provider Family Medicine
DX: Z13.1 Encounter for screening for diabetes mellitus (principal); Z13.220 Encounter for screening for lipoid disorders
CPT/HCPCS: 36415; 80061; 82947

== ENCOUNTER 2020-09-24 09:50 | Outpatient (CLI) | payer OTHER, SELFPAY ==
--- NOTE | 2020-09-24 09:30 | DI.RAD_ITS ---
Exam(s) XR FOOT RT COMPLETE EXAM: XR FOOT RT COMPLETE CLINICAL HISTORY: RT FOOT PAIN, M79.671, r/o fracture. TECHNIQUE: 2D digital imaging was performed. COMPARISON: No exams were available for comparison FINDINGS: BONES: There is an acute minimally displaced fracture of the base of the 5th metatarsal. No bony ayana tructive lesion is seen. JOINTS: No dislocation present. SOFT TISSUE: Normal. IMPRESSION: Minimally displaced fracture of the base of the 5th metatarsal. DATA REPOSITORY: RADIATION DOSE DELIVERED:
== END 2020-09-24 10:10 ==
PROVIDERS: PCP Family Medicine; Visit Provider Nurse Practitioner Family
DX: S92.351A Displaced fracture of fifth metatarsal bone, right foot, initial encounter for closed fracture (principal); X58.XXXA Exposure to other specified factors, initial encounter
CPT/HCPCS: 73630

== ENCOUNTER 2020-10-20 11:03 | Outpatient (CLI) | payer OTHER, SELFPAY ==
--- NOTE | 2020-10-20 10:45 | DI.RAD_ITS ---
Exam(s) XR FOOT RT COMPLETE EXAM: XR FOOT RT COMPLETE CLINICAL HISTORY: 5th metatarsal fracture. TECHNIQUE: 2D digital imaging was performed. COMPARISON: CR XR FOOT RT COMPLETE from 09/24/2020 FINDINGS: Fracture site at the base of the 5th metatarsal exhibits minimal change. No further displacement. F racture line is still evident. No additional fracture seen. Mild hallux valgus. IMPRESSION: DATA REPOSITORY: RADIATION DOSE DELIVERED:
== END 2020-10-20 11:04 | disposition home or self-care (01) ==
LOC: DIORS 11:04
PROVIDERS: PCP Family Medicine; Visit Provider Physician Assistant Surgical
DX: S92.351A Displaced fracture of fifth metatarsal bone, right foot, initial encounter for closed fracture (principal); M20.11 Hallux valgus (acquired), right foot
CPT/HCPCS: 73630

== ENCOUNTER 2020-12-16 10:25 | Outpatient (CLI) | payer OTHER, SELFPAY ==
--- NOTE | 2020-12-16 10:56 | DI.RAD_ITS ---
Exam(s) XR LUMBAR SPINE COMPLETE EXAM: XR LUMBAR SPINE COMPLETE CLINICAL HISTORY: lumbar pain, M54.50. TECHNIQUE: 2D digital imaging was performed. COMPARISON: No exams were available for comparison FINDINGS: No evidence of fracture or listhesis nor pars defects. Mild multilevel disc space narrowing and ante rior osseous lipping throughout the lumbosacral spine noted. Mild facet arthropathy at multiple leve ls. Mild scoliosis convex left noted. Sacroiliac joints appear unremarkable. No osseous lesions. IMPRESSION: DATA REPOSITORY: RADIATION DOSE DELIVERED:
== END 2020-12-16 10:45 ==
PROVIDERS: PCP Family Medicine; Visit Provider Nurse Practitioner Family
DX: M54.50 Low back pain, unspecified (principal); M51.36 Other intervertebral disc degeneration, lumbar region; M47.816 Spondylosis without myelopathy or radiculopathy, lumbar region
CPT/HCPCS: 72110

== ENCOUNTER 2020-12-16 21:16 | Outpatient (REF) | payer OTHER, SELFPAY ==
[2020-12-19 00:34] LABS: Anaplasma phagocytophilum Negative (Negative); B. miyamotoi PCR Negative (Negative); Babesia divergens/MO-1 Negative (Negative); Babesia duncani Negative (Negative); Babesia microti Negative (Negative); Ehrlichia chaffeensis Negative (Negative); Ehrlichia ewingii/canis Negative (Negative); Ehrlichia muris eauclairensis Negative (Negative)
[2020-12-20 15:24] LABS: Lyme Ab w Rflx to Lyme Confirm Negative (Negative)
== END 2020-12-16 21:17 | disposition home or self-care (01) ==
LOC: NCHCN 21:16
PROVIDERS: PCP Family Medicine; Visit Provider Nurse Practitioner Family
DX: W57.XXXA Bitten or stung by nonvenomous insect and other nonvenomous arthropods, initial encounter (principal); T14.8XXA Other injury of unspecified body region, initial encounter
CPT/HCPCS: 87798; 86618

== ENCOUNTER → 2021-12-09 00:48 | Outpatient (CLI) | payer OTHER, SELFPAY ==
--- NOTE | 2021-12-09 13:45 | DI.DEXA_ITS ---
Exam(s) XR DEXA BONE DENSITY W/WO OJ EXAM: XR DEXA BONE DENSITY W/WO OJ CLINICAL HISTORY: Postmenopausal, Z78.0; screening for osteoporosis, Z13.820; TECHNIQUE: COMPARISON: Comparison is 11/23/2010. FINDINGS: Lateral Spine Image: Unremarkable. No compression deformities identified. Left hip: Total T-Score: -1.5. This compares to -0.7 on the prior examination. Total Z-Score: -0.6 T- and Z-scores: Findings are consistent with osteopenia. Lumbar Spine: Total T-Score: -1.6. This compares to -1.0 on the prior examination. Total Z-Score: -0.2 T- and Z-scores: Findings are consistent with osteopenia. IMPRESSION: No evidence of osteoporosis.
== END ==
PROVIDERS: PCP Nurse Practitioner; Visit Provider Naturopath
DX: Z13.820 Encounter for screening for osteoporosis (principal); Z78.0 Asymptomatic menopausal state; M85.89 Other specified disorders of bone density and structure, multiple sites
CPT/HCPCS: 77080

== ENCOUNTER 2022-06-09 01:20 | Outpatient (CLI) | payer OTHER, SELFPAY ==
[2022-06-09 07:53] LABS: HCT 39.7 % (36.0-46.0); HGB 13.6 g/dL (11.2-15.7); MCH 32.1 pg (27.0-33.0); MCHC 34.3 % (32.0-36.0); MCV 94 fL (80-95); MPV 10.4 fL (8.0-11.0); Platelet Count 276 10^3/uL (130-400); RBC 4.24 10^6/uL (3.93-5.22); RDW 12.4 % (11.7-14.6); RDW-SD 42.6 fL; WBC 6.07 10^3/uL (4.4-10.8)
[2022-06-09 10:01] LABS: ALT 29 U/L (14-59); AST 16 U/L (15-37); Albumin 4.4 g/dL (3.4-5.0); Alkaline Phosphatase 78 U/L (46-116); Anion Gap 7.6 mmol/L (3-11); BUN 15 mg/dL (7-18); Bilirubin, Total 0.5 mg/dL (0.2-1.0); CO2 30.4 mmol/L (21.0-32.0); CREATININE 0.8 mg/dL (0.55-1.02); Calcium 9.4 mg/dL (8.5-10.1); Calculated LDL 164 mg/dL (<100); Chloride 103 mmol/L (98-107); Cholesterol 247 mg/dL (<200); Glucose 92 mg/dL (74-106); HDL Cholesterol 70 mg/dL (40-60); Potassium 3.9 mmol/L (3.5-5.1); Sodium 141 mmol/L (136-145); Triglyceride 67 mg/dL (<150)
== END 2022-06-09 01:21 | disposition home or self-care (01) ==
LOC: LBO 01:20
PROVIDERS: PCP Nurse Practitioner Family; Visit Provider Nurse Practitioner Family
DX: Z00.00 Encounter for general adult medical examination without abnormal findings; M67.88 Other specified disorders of synovium and tendon, other site; Z80.0 Family history of malignant neoplasm of digestive organs; G43.909 Migraine, unspecified, not intractable, without status migrainosus; I83.90 Asymptomatic varicose veins of unspecified lower extremity
CPT/HCPCS: 36415; 80053; 80061; 85027

== ENCOUNTER 2022-06-19 01:30 | Outpatient (CLI) | payer OTHER, SELFPAY ==
--- NOTE | 2022-06-19 09:21 | DI.MAMMO_ITS ---
Exam(s) MAMMO SCREENING EXAM: MAMMO SCREENING CLINICAL HISTORY: screening,z12.39 TECHNIQUE: Mammograms were interpreted according to the usual protocol including computer analysis w eCozy CAD system, tomosynthesis and C-view imaging. COMPARISON: 2014 through 2020 FINDINGS: The breasts are composed of heterogeneously dense fibroglandular densities, Breast Density category C . No suspicious masses or suspicious microcalcifications are seen. No skin thickening or abnormal axillary lymph nodes are seen. There has been no significant change from prior exams. IMPRESSION: BI-RADS Category 1, Negative mammogram. Yearly screening mammography is recommended. Breast Density Category C, heterogeneously Dense. The mammogram demonstrates the patient's breast tissue is dense. Dense breast tissue is very common a nd is not abnormal but dense breast tissue can make it harder to find cancer on a mammogram. Also, de nse breast tissue may increase breast cancer risk. This information about the result of the mammogram report was provided to the patient to raise their awareness. Use this report when you speak with the patient about their risks for breast cancer, which includes their family history. At that time, you may recommend additional screening tests (Ultrasound or MRI) as they might be useful based on their r isk. A negative radiographic report should not delay biopsy if a dominant or clinically suspicious mass is present. Up to ten percent of cancers are not identified on mammography. A negative report may reinforce clinical impression. Adenosis and dense breasts may obscure an underlying neoplasm. False positive reports average 6 to 10%.
== END 2022-06-19 01:50 ==
LOC: DI 01:31
PROVIDERS: PCP Nurse Practitioner Family; Visit Provider Nurse Practitioner Family
DX: Z12.31 Encounter for screening mammogram for malignant neoplasm of breast (principal)
CPT/HCPCS: 77063; 77067

== ENCOUNTER 2023-03-09 11:26 | Outpatient (REF) | payer OTHER, SELFPAY ==
[2023-03-09 12:21] LABS: Bilirubin Negative (Negative); Blood Moderate (Negative); Clarity Clear (Clear); Glucose Negative (Negative); Ketones Negative (Negative); Leukocyte Esterase Moderate (Negative); Nitrite Negative (Negative); Specific Gravity <= 1.005 (1.005-1.025); Urobilinogen 0.2 mg/dL (Up to 0.2); pH 6.5 (5-8)
[2023-03-09 13:17] LABS: Bacteria Moderate HPF (Negative); C & S Indicated? Yes; Casts Negative LPF (Negative); Crystals Negative HPF (Negative); Epithelial Cells Negative HPF (Negative); Mucus Negative (Negative); Other Cells Negative (Negative); RBC >50 HPF (0-2); WBC >50 HPF (0-5)
== END 2023-03-09 11:27 | disposition home or self-care (01) ==
LOC: LBN 11:26
PROVIDERS: PCP Nurse Practitioner Family; Visit Provider Nurse Practitioner Family
DX: N39.0 Urinary tract infection, site not specified (principal); B96.89 Other specified bacterial agents as the cause of diseases classified elsewhere
CPT/HCPCS: 87077; 81003; 81015; 87086; 87186

== ENCOUNTER 2023-04-09 10:07 | Emergency (ER) | payer OTHER, SELFPAY ==
[2023-04-09] VITALS (19 sets, daily range): BP systolic 120–128; BP diastolic 68–77; PULSE 62–77; RESP 11–23; TEMP 36.3; O2SAT 97–100
--- NOTE | 2023-04-09 10:00 | RT.EKG_ITS ---
APPROVED REPORT Exam: Resting ECG Reason for Exam: chest pain Patient Location: E HR:69 bpm ECG Measurements Heart Rate 69 AXIS NV 140 P 77 QRSd 104 QRS 73 QT 401 T 46 QTc 431 Conclusion Sinus rhythm. 69 normal axis no stemi
--- NOTE | 2023-04-09 10:15 | DI.RAD_ITS ---
Exam(s) XR CHEST 2V PA LATERAL EXAM: XR CHEST 2V PA LATERAL CLINICAL HISTORY: chest pain TECHNIQUE: 2D digital imaging was performed. COMPARISON: CR XR CHEST 2V PA LATERAL from 07/06/2018 FINDINGS: Leads overlie the chest. HEART: Normal size. Aorta: Not dilated. PULMONARY VASCULATURE: Normal. LUNGS: Clear. PLEURAL SPACE: No pleural effusion or pneumothorax. BONE:Pectus excavatum deformity. Mild scoliosis. Soft tissues: Unremarkable. IMPRESSION: No acute abnormality. DATA REPOSITORY: RADIATION DOSE DELIVERED:
[2023-04-09] MEDS: Aspirin 81 MG CHEW 324 MG CH (10:35)
[2023-04-09 10:39] LABS: Abs Immature Grans 0.02 10^3/uL (0.0-0.06); Absolute Basophil Count 0.03 10^3/uL (0.0-0.2); Absolute Lymphocyte Count 1.51 10^3/uL (1.2-3.4); Absolute Monocyte Count 0.49 10^3/uL (0.1-0.8); Absolute Neutrophil Count 3.69 10^3/uL (1.2-6.7); Basophils % 0.5; Eosinophils % 1.7; HGB 13.7 g/dL (11.2-15.7); Immature Grans % 0.3; Lymphocytes % 25.9; MCH 31.5 pg (27.0-33.0); MCHC 33.4 % (32.0-36.0); MCV 94 fL (80-95); MPV 10.6 fL (8.0-11.0); Monocytes % 8.4; Neutrophils % 63.2; Platelet Count 286 10^3/uL (130-400); RBC 4.35 10^6/uL (3.93-5.22); RDW 12.5 % (11.7-14.6); RDW-SD 43.7 fL; WBC 5.84 10^3/uL (4.4-10.8)
[2023-04-09 11:02] LABS: ALT 25 U/L (14-59); AST 15 U/L (15-37); Albumin 4.3 g/dL (3.4-5.0); Alkaline Phosphatase 90 U/L (46-116); Anion Gap 7.9 mmol/L (3-11); BUN 13 mg/dL (7-18); Bilirubin, Total 0.6 mg/dL (0.2-1.0); CO2 31.1 mmol/L (21.0-32.0); CREATININE 0.8 mg/dL (0.55-1.02); Calcium 9.6 mg/dL (8.5-10.1); Chloride 102 mmol/L (98-107); Glucose 97 mg/dL (74-106); Potassium 3.7 mmol/L (3.5-5.1); Sodium 141 mmol/L (136-145); Total Protein 7.9 g/dL (6.4-8.2); Troponin I < 50 ng/L (< or =60)
[2023-04-09 14:12] LABS: Troponin I < 50 ng/L (< or =60)
--- NOTE | 2023-04-09 14:48 | ED.GENADUL_ITS ---
Discharge Plan Disposition Patient Disposition: Home Condition: Stable Discharge Details Clinical Impression: Chest pain Primary Care Provider: Aimee Teague ED Provider: Sara Chapin Home Meds and New Rx's Prescriptions: No Action aspirin [Aspirin Low-Strength] 81 MG tablet,chewable 81 mg PO DAILY calcium carbonate-vitamin D3 1 EACH tablet 1 tab PO BID Qty: 60 acetaminophen 500 mg tablet 500 mg PO Q6H PRN PRN (Reason: pain) Qty: 60 3RF ibuprofen 600 mg tablet 600 mg PO TID PRNQty: 60 3RF Discharge Instructions Instructions: Chest Pain (ED) Additional Instructions: EKG and blood work today is very reassuring. Please follow-up with your PCP to schedule an outpatient stress test for further evaluation and risk stratification of chest pain. Return to the emergency department with any severe symptoms or other concerns. Otherwise please follow-up with your primary care provider. HPI General Date/Time Provider Initiated Documentation: 04/09/23 10:26 . Limitations to Documentation: no limitations . Information obtained by: patient . HPI Narrative: 62-year-old female without significant past medical history presents for evaluation of chest pain. Symptoms started last night. Pain was left-sided and noted to be in the back as well. Pain not radiating to the back. Denies any associated diaphoresis, nausea or shortness of breath. Pain is resolved at this time, but she noted that she has some tingling in the tips of her long and ring finger of the left hand. She does not smoke, have diabetes. No family history of early coronary disease. Related Data Home Medications Medication Instructions Recorded Confirmed aspirin 81 mg chewable tablet 81 mg PO DAILY 07/01/14 04/09/23 (Aspirin Low-Strength) calcium carbonate 600 mg-vitamin 1 tab PO BID #60 tab-caps 07/07/15 04/09/23 D3 5 mcg (200 unit) tablet acetaminophen 500 mg tablet 500 mg PO Q6H PRN PRN pain #60 tabs 07/07/18 04/09/23 ibuprofen 600 mg tablet 600 mg PO TID PRN #60 tabs 07/07/18 04/09/23 Previous Rx's Medication Instructions Recorded acetaminophen 500 mg tablet 500 mg PO Q6H PRN PRN pain #60 tabs 07/07/18 ibuprofen 600 mg tablet 600 mg PO TID PRN #60 tabs 07/07/18 Allergies Allergy/AdvReac Type Severity Reaction Status Date / Time ciprofloxacin AdvReac Intermediate Other (See Verified 04/09/23 10:29 Comment) levofloxacin AdvReac Intermediate Other (See Verified 04/09/23 10:29 Comment) General Stated Complaint: Chest Pain DMITRI: 3 Exam Narrative Exam Narrative: Review of Systems: All systems reviewed & are unremarkable except as noted in HPI and below Well-developed, no acute distress NCAT PERRL, normal conjunctiva RRR, tachycardia Unlabored respiratory effort, clear breath sounds bilaterally Nondistended abdomen Extremities w/o deformity, no cyanosis, no edema No rashes or lesions. no focal neurologic deficits Appropriate mood and affect Course Vital Signs Vital signs: Vital Signs Temperature 36.3 C L 04/09/23 10:11 Pulse 70 04/09/23 10:11 Respiratory Rate 12 04/09/23 10:11 Blood Pressure 128/77 04/09/23 10:11 Pulse Oximetry 98 04/09/23 10:11 Temperature 36.3 C L 04/09/23 10:11 Temperature Source Temporal Artery Scan 04/09/23 10:11 Pulse 73 04/09/23 14:40 Pulse 62 04/09/23 12:40 Respiratory Rate 16 04/09/23 14:40 Respiratory Effort Normal, Non-Labored 04/09/23 10:20 Respiratory Depth Normal 04/09/23 10:20 Respiratory Pattern Normal 04/09/23 10:20 Blood Pressure 120/68 04/09/23 14:40 Blood Pressure Mean 88 04/09/23 10:37 Blood Pressure Position Sitting 04/09/23 10:11 Pulse Oximetry 98 04/09/23 14:40 Oxygen Delivery Method Room Air 04/09/23 10:11 Oxygen Flow Rate 0 04/09/23 10:11 Pain Level 0 04/09/23 10:20 Lab/Test Results Lab/Test Results: Laboratory Tests Range/Units 04/09/23 04/09/23 10:20 13:41 WBC (4.4-10.8) 10^3/uL 5.84 RBC (3.93-5.22) 10^6/uL 4.35 Hgb (11.2-15.7) g/dL 13.7 Hct (36.0-46.0) % 41.0 MCV (80-95) fL 94 MCH (27.0-33.0) pg 31.5 MCHC (32.0-36.0) % 33.4 RDW (11.7-14.6) % 12.5 Plt Count (130-400) 10^3/uL 286 MPV (8.0-11.0) fL 10.6 Immature Gran % 0.3 Neutrophils % 63.2 Lymphocytes % 25.9 Monocytes % 8.4 Eosinophils % 1.7 Basophils % 0.5 Nucleated RBC % (0.0-0.3) % 0.0 Absolute Neutrophils (1.2-6.7) 10^3/uL 3.69 Absolute Lymphocytes (1.2-3.4) 10^3/uL 1.51 Absolute Monocytes (0.1-0.8) 10^3/uL 0.49 Absolute Eosinophils (0.0-0.7) 10^3/uL 0.10 Absolute Basophils (0.0-0.2) 10^3/uL 0.03 Sodium (136-145) mmol/L 141 Potassium (3.5-5.1) mmol/L 3.7 Chloride (98-107) mmol/L 102 Carbon Dioxide (21.0-32.0) mmol/L 31.1 Anion Gap (3-11) mmol/L 7.9 BUN (7-18) mg/dL 13 Creatinine (0.55-1.02) mg/dL 0.8 Est GFR (CKD-EPI 2020) (mL/min/1.73m2) 84.30 Glucose (74-106) mg/dL 97 Calcium (8.5-10.1) mg/dL 9.6 Total Bilirubin (0.2-1.0) mg/dL 0.6 AST (15-37) U/L 15 ALT (14-59) U/L 25 Alkaline Phosphatase (46-116) U/L 90 Troponin I (< or =60) ng/L < 50 < 50 Total Protein (6.4-8.2) g/dL 7.9 Albumin (3.4-5.0) g/dL 4.3 Medical Decision Making Emergent evaluation of chest pain. Patient is low risk other than age. Her EKG does not demonstrate acute ischemia. Plan for serial cardiac enzymes. The tingling in her fingers does not follow a dermatomal distribution, this could likely be secondary to some peripheral muscle spasm Initial troponin negative. Other lab work unremarkable. Her second troponin was also negative and she has remained chest pain-free. At this time I feel she is stable for discharge home and I recommend that she follow-up with her PCP for outpatient stress test. Return precautions advised. Medical Records Medical records reviewed: Yes I reviewed the patient's medical records. Lab Data Lab results reviewed: Yes I reviewed the patient's lab results. Quality:SDOH Health Related Social Needs: No Data to Display PFSH All Active Problems Chest pain (Acute) Achilles tendinosis of both lower extremities (Acute) Chronic Achilles discomfort, stable as of 05/2021 Family history of colon cancer (Acute) Father-patient with colonoscopy every 5 years 2018-colonoscopoy, due 2023 Migraine (Chronic) Varicose veins of lower extremity (Chronic) right leg Medical History History of postoperative nausea and vomiting 2013 colonoscopy awful for days Family history of colon cancer in father Normal colonoscopy Last [place]: 12/12/13 w/ Dr. Adelita Murrell, mild sigmoid diverticula, repeat 5 years due to family hx. mg Surgical History Hx of colonoscopy Displaced fracture of lateral end of right clavicle (07/07/18) DOS of ORIF: 07/07/18 S/P hardware removal DOS: 10/01/18 Family History Mother , 81 Osteoporosis Father Heart disease Hyperlipidemia Neoplasm COLON Sister Osteopenia Brother Prostate cancer Maternal Grandfather Pancreatic cancer Paternal Grandfather Heart disease Paternal Grandmother Heart disease Maternal Grandmother Heart disease Stroke MATERNAL FAMILY HX Osteoporosis MOTHERS TWIN Neoplasm MOTHER TWIN-OVARIAN MOTHERS SISTER-OVARIAN MOTHERS BROTHER-UNKNOWN TYPE Sister No problems noted. Brother No problems noted. Brother No problems noted. Daughter No problems noted. Daughter No problems noted. Social History Smoking/Tobacco Use Status: Never Second Hand Exposure: No Smoking risk assessment performed?: Yes Alcohol Intake: current Alcohol Intake frequency: a few times a week Alcohol type: wine Drug use: Never Substance use type: does not use Caregiver/Support person: No Household members: spouse and children Housing: house Communication Needs: None Do you need help understanding health information?: Never Pets and animals: Yes Pets and animals: dog(s) Sexually active: Yes Do you think of yourself as: straight/heterosexual Current gender identity: female What is your relationship status?: How often do you talk on the phone with friends or family?: once per week How often do you get together with friends or relatives?: once per week How often do you attend faith or orthodox services?: decline to answer Do you belong to any clubs or organized social groups?: yes Panel score (0-1 are the most socially isolated patients): 2 What type of physical activity do you participate in: walking Duration: 15-30 minutes/day Frequency: 3-4 times per week Niya/Alevism: None Special niya needs: No Seatbelt use: always Helmet use: Yes Helmet use: always 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 Do you feel safe at home: Yes Do you feel safe in your relationship?: Yes PAWSS Have you Been Recently Intoxicated or Drunk Within the Last 30 days?: No Have you Ever Experienced Previous Episodes of Alcohol Withdrawal?: No Have you ever Experienced Withdrawal Seizures?: No Have you ever Experienced Delirium Tremens(DT)s?: No Have you ever undergone Alcohol Rehabilitation Treatment (i.e, inpt ot outpatient treatment programs)?: No Have you ever Experienced Blackouts?: No Have you ever Combined Alcohol with other Downers within the last 90 days?: No Have you ever Combined Alcohol with any other Substance of Abuse during the last 90 days?: No Positive Blood Alcohol level on Presentation? [PCS.BAL]: No Evidence of Increased Autonomic Activity (i.e. HR>120, tremor, sweating, agitation, nausea)?: No Result: 0
== END 2023-04-09 14:40 | disposition home or self-care (01) ==
PROVIDERS: Emergency Provider Emergency Medicine; PCP Nurse Practitioner Family
DX: R07.9 Chest pain, unspecified (principal)
CPT/HCPCS: 36415; 80053; 93005; 99284; 71046; 84484; 85025; 93010; 99283

== ENCOUNTER → 2023-04-30 00:44 | Outpatient (CLI) | payer OTHER, SELFPAY ==
--- NOTE | 2023-04-30 06:15 | ETT_ITS ---
APPROVED REPORT Exam: Exercise Treadmill Patient Location: Out-Patient Room/Bed: Stress Nurse: Melany Singer RN Ordering Provider:WINDY DUNCAN, Contact Number: [phone] BMI: 19.63 Baseline Rhythm: Sinus Rhythm Indications: chest pain Medical History Medical History: Migraines Cardiac Medications: Aspirin Allergies: Ciprofloxacin, levofloxacin Cardiac Risk Factors: None Previous Cardiac Procedures: None Pretest Chest Pain Characteristics: None Exercise History: Physically active Physical Disabilities: None Lung Sounds: Clear to auscultation Heart Sounds: Regular Stress Test Details Test: Exercise stress testing was performed using a Nader protocol. Rest Stress HR Resting HR Supine: 71 bpm Max Heart Rate (APMHR): 160 bpm Resting HR Standin bpm Target HR (85% APMHR): 136 bpm Max HR Achieved: 154 bpm % of APMHR: 96 Recovery HR: 85 bpm HR response to stress: Normal HR response to stress BP Resting BP Supine: 108/72 mmHg Resting BP Standin/72 mmHg Max BP: 142/72 mmHg Recovery BP: 108/68 mmHg BP response to stress: Normal blood pressure response to stress. ECG Resting ECG: Sinus Rhythm Ectopy: None Stress ECG: Sinus Rhythm ST Change: No significant ST segment changes noted Arrhythmia: None Recovery ECG: Sinus Rhythm Recovery ST Change: No significant ST segment changes noted Recovery Arrhythmia: None Clinical Reason for Termination: Target HR Achieved Stress Symptoms: None Exercise duration: 7 min52 sec Highest Stage Reached: Stage 3: 3.4 mph at 14% grade. Exercise capacity: 9.97 METs Functional Capacity: Average Capacity Angina Score: None William Treadmill Score: 7.4 Rate Pressure Product: 40304 Stress ECG Conclusion 1. Resting electrocardiogram was normal 2. Patient exercised on the Nader protocol and completed a workload of 9.97 METS 3. Normal heart rate and blood pressure response to exercise. Patient achieved 96% of predicted hear t rate for age 4. There was no electrocardiographic evidence of myocardial ischemia 5. There were no significant dysrhythmias William Treadmill Score is 7.4 which is Low risk. Stress Test Summary STAGE Time (mins) Speed (mph) Grade (%) HR BP SpO2 SYMPTOMS METS Supine 71 108/72 Standing 78 112/72 1 3 1.7 10 106 108/62 4.5 2 6 2.5 12 132 120/62 7 1 min recovery 118 142/72 3 min recovery 89 132/70 6 min recovery 85 108/68
== END ==
PROVIDERS: PCP Nurse Practitioner Family; Visit Provider Nurse Practitioner Family
DX: R07.9 Chest pain, unspecified (principal)
CPT/HCPCS: 93017

== ENCOUNTER 2023-06-28 05:12 | Outpatient (CLI) | payer OTHER, SELFPAY ==
[2023-06-28 08:33] LABS: Calculated LDL 135 mg/dL (<100); Cholesterol 211 mg/dL (<200); HDL Cholesterol 65 mg/dL (40-60); TSH (W/Ref FT4) 4.73 uIU/mL (0.36-3.74); Triglyceride 59 mg/dL (<150)
[2023-06-28 08:56] LABS: FREE T4 0.86 ng/dL (0.76-1.46)
== END 2023-06-28 05:13 | disposition home or self-care (01) ==
PROVIDERS: PCP Nurse Practitioner Family; Visit Provider Nurse Practitioner Family
DX: Z00.00 Encounter for general adult medical examination without abnormal findings (principal); Z80.0 Family history of malignant neoplasm of digestive organs; G43.909 Migraine, unspecified, not intractable, without status migrainosus
CPT/HCPCS: 36415; 80061; 84439; 84443

== ENCOUNTER → 2023-07-11 03:43 | Outpatient (CLI) | payer OTHER, SELFPAY ==
--- NOTE | 2023-07-11 08:00 | DI.MAMMO_ITS ---
Exam(s) MAMMO SCREENING EXAM: MAMMO SCREENING CLINICAL HISTORY: screening, Z12.39 TECHNIQUE: Mammograms were interpreted according to the usual protocol including computer analysis w [employer] CAD system, tomosynthesis and C-view imaging. COMPARISON: 2014 through 2022 FINDINGS: The breasts are composed of heterogeneously dense fibroglandular densities, Breast Density category C . No suspicious masses or suspicious microcalcifications are seen. No skin thickening or abnormal axillary lymph nodes are seen. There has been no significant change from prior exams. IMPRESSION: BI-RADS Category 1, Negative mammogram. Yearly screening mammography is recommended. Breast Density Category C, heterogeneously Dense. The mammogram demonstrates the patient's breast tissue is dense. Dense breast tissue is very common a nd is not abnormal but dense breast tissue can make it harder to find cancer on a mammogram. Also, de nse breast tissue may increase breast cancer risk. This information about the result of the mammogram report was provided to the patient to raise their awareness. Use this report when you speak with the patient about their risks for breast cancer, which includes their family history. At that time, you may recommend additional screening tests (Ultrasound or MRI) as they might be useful based on their r isk. A negative radiographic report should not delay biopsy if a dominant or clinically suspicious mass is present. Up to ten percent of cancers are not identified on mammography. A negative report may reinforce clinical impression. Adenosis and dense breasts may obscure an underlying neoplasm. False positive reports average 6 to 10%.
== END ==
PROVIDERS: PCP Nurse Practitioner Family; Visit Provider Nurse Practitioner Family
DX: Z12.31 Encounter for screening mammogram for malignant neoplasm of breast (principal); R92.323 Mammographic fibroglandular density, bilateral breasts
CPT/HCPCS: 77063; 77067

== ENCOUNTER 2024-01-04 10:41 | Day surgery (SDC) | payer OTHER, SELFPAY ==
[2024-01-04 11:20] VITALS: PULSE 72; RESP 20; TEMP 36.2; O2SAT 97
--- NOTE | 2024-01-04 12:18 | W.ANESPRE ---
General Info Date of Service Date Performed: 01/04/24 Height: 5 ft 4.75 in Weight: 51.1 kg Body Mass Index (BMI): 18.8 Surgical Procedure: Operation Date: 01/04/24 13:05 Proposed Procedure Side Surgeon p Colonoscopy Joleen REYNA MD Meds Allergies and Home Medications Allergies Allergy/AdvReac Type Severity Reaction Status Date / Time ciprofloxacin AdvReac Intermediate Other (See Verified 01/04/24 11:19 Comment) levofloxacin AdvReac Intermediate Other (See Verified 01/04/24 11:19 Comment) Home Medication ?Medication ?Instructions ?Recorded calcium 600 mg (as 1 tab PO BID #60 tab-caps 07/07/15 carbonate)-vitamin D3 5 mcg (200 unit) tablet bisacodyl 5 mg tablet,delayed 5 mg PO ONCE #4 tabs 12/20/23 release (Dulcolax (bisacodyl)) polyethylene glycol 3350 17 17 g PO ONCE #238 grams 12/20/23 gram/dose oral powder Current Visit Medications: Current Medications Generic Name Dose Route Start Last Admin Trade Name Jey PRN Reason Stop Dose Admin IV Miscellaneous Supplies 1 each 01/04/24 06:00 Iv Access IV 01/04/24 23:59 DIRECTED JEROMY Sodium Chloride 0 ml 01/04/24 06:00 Normal Saline Flush 10 Ml Syr IV 01/04/24 23:59 PRN PRN Sodium Chloride 0 ml 01/04/24 06:00 Normal Saline 10 Ml Vial IJ 01/04/24 23:59 DIRECTED PRN Sterile Water 0 ml 01/04/24 06:00 Water,Injection,Sterile 10 Ml Vial IJ 01/04/24 23:59 DIRECTED PRN PFSH Active Problems Active Problems: Problem Status Onset Code Skin lesions, generalized Acute L98.9 Achilles tendinosis of both lower extremities Acute M67.88 Family history of colon cancer Acute Z80.0 Migraine Chronic G43.909 Varicose veins of lower extremity Chronic I83.90 Medical History Medical History History of postoperative nausea and vomiting 2013 colonoscopy awful for days Family history of colon cancer in father Normal colonoscopy Last [place]: 12/12/13 w/ Dr. Adelita Murrell, mild sigmoid diverticula, repeat 5 years due to family hx. mg Surgical History Surgical History Hx of colonoscopy Displaced fracture of lateral end of right clavicle (07/07/18) DOS of ORIF: 07/07/18 S/P hardware removal DOS: 10/01/18 Tobacco Smoking/Tobacco Use Status: Never Passive smoking exposure: No Second hand exposure: No Alcohol Alcohol Intake: current Alcohol intake frequency: 0-2 drinks per day Alcohol type: wine Substance Use Substance use: Never Substance use type: does not use Vital Signs and Lab Results Vital Signs Most Recent Vital Signs in EMR: Most Recent Vital Signs Temp Pulse Resp Pulse Ox 36.2 C L 72 20 97 01/04/24 11:20 01/04/24 11:20 01/04/24 11:20 01/04/24 11:20 Lab Results Blood Type / Crossmatch: No Data to Display Complete Blood Count: No Data to Display Complete Metabolic Panel: No Data to Display Liver Function Panel: No Data to Display Coagulation Panel: No Data to Display Cardiac Panel: No Data to Display Arterial Blood Gas: No Data to Display Venous Blood Gas: No Data to Display Pancreas Panel: No Data to Display Thyroid Panel: No Data to Display Infectious Disease: No Data to Display Blood Cultures: No Data to Display Toxicology Panel: No Data to Display Imaging and Studies Imaging and Studies Study information below may be from another EMR and interpreted by another provider. Please see original notes in EMR for more complete details. EKG Summary: 04/09/23 Conclusion Sinus rhythm. 69 normal axis no stemi Stress Test Summary: 04/30/23 Clinical Reason for Termination: Target HR Achieved Stress Symptoms: None Exercise duration: 7 min52 sec Highest Stage Reached: Stage 3: 3.4 mph at 14% grade. Exercise capacity: 9.97 METs Functional Capacity: Average Capacity Angina Score: None William Treadmill Score: 7.4 Rate Pressure Product: 33706 Stress ECG Conclusion 1. Resting electrocardiogram was normal 2. Patient exercised on the Nader protocol and completed a workload of 9.97 METS 3. Normal heart rate and blood pressure response to exercise. Patient achieved 96% of predicted heart rate for age 4. There was no electrocardiographic evidence of myocardial ischemia 5. There were no significant dysrhythmias William Treadmill Score is 7.4 which is Low risk. Anesthesia Assessment and Plan Anesthesia History Personal History: No History of Anesthesia Complications Family History: No Family History of Anesthesia Complications Exercise Tolerance Exercise Tolerance: Metabolic Equivalents>4 Pertinent Negatives Pertinent Negatives: No Symptoms of GERD (occ with certain foods, none presently), No Major Cardiovascular Symptoms or Complaints and No Major Pulmonary Symptoms or Complaints Cardiac & Pulmonary Exam Cardiac Exam: Normal S1/S2 Heart Sounds Pulmonary Exam: Clear Bilateral Breath Sounds Implantable Cardiac Device Does patient have a Pacemaker or an ICD?: No Airway Exam Known Difficult Airway: No Mallampati Class: 2 Mouth Opening: Normal (> 3cm) Thyromental Distance: Greater than 3 cm Neck Range of Motion: Full ROM Neck Circumference: Normal Teeth Condition: Normal Dentition ASA Classification ASA Score: ASA 2 Emergency Case?: No NPO Status NPO Status: NPO Clears >2 hours, Solids >8 hours Anesthesia Plan Resuscitation Status: Full Code Anesthesia Technique: General Anesthesia Airway Planned: Natural Airway Monitors Used: Standard Monitors
[2024-01-04 12:21] VITALS: BMI 18.8
[2024-01-04] MEDS: Normal Saline Flush 10 ML SYR IV (12:30)
[2024-01-04 14:02] VITALS: BP 99/51; PULSE 70; RESP 16; TEMP 36.4; O2SAT 99
--- NOTE | 2024-01-04 14:07 | W.PM.OP ---
Operative Note Operative Note PRE-OP DIAGNOSIS: Screening colonoscopy POST-OP DIAGNOSIS: same Colon polyp, diverticular disease SURGEON: Joleen Bhakta [place] ANESTHESIA TYPE: MAC Refer to Anesthesia Record PATHOLOGY: other (Ascending colon polyp) COMPLICATIONS: None Patient was transported to: PACU Patient's condition: stable Findings: 1 subcentimeter polyp, pandiverticulosis Procedure Description: After obtaining informed consent, patient was brought back to the operating room. She was turned in her left side and connected to the monitors. Propofol was administered. Timeout was performed. I began by performing a digital rectal exam. This was unremarkable. I inserted the colonoscope and advanced the length of the colon. I attained the cecum as identified by the appendiceal orifice and the ileocecal valve. I did not intubate the ileocecal valve due to the tortuous nature of the colon. Her prep was good. Cecum had a normal appearance. In the proximal ascending colon she had a 5 mm sessile serrated appearing polyp that I removed with the cold snare. This was retrieved with suction and sent to pathology. I withdrew along the transverse colon, descending colon, and sigmoid colon. No further mucosal abnormalities were noted. She was noted to have diverticular disease throughout the ascending, transverse and left colon. I withdrew into the rectum. I did retroflex. This was unremarkable. I decompressed the rectum and withdrew the scope entirely. Patient tolerated well. She went to recovery in stable condition. Disposition: Patient will be discharged home later today. We will call her and a few weeks with pathology report. She should have a repeat colonoscopy in 5 years, pending pathology, given family history of colon cancer in her father who was diagnosed around the age of 6060 years old. Date of Procedure: 01/04/24
[2024-01-04 14:32] VITALS: BP 106/62; PULSE 71; RESP 16; TEMP 36.2; O2SAT 100
--- NOTE | 2024-01-04 14:45 | W.ANESPOSTOP ---
Postoperative Evaluation Date, Time and Location Date Performed: 01/04/24 Time Performed: 14:04 Patient Location: Day Surgery Unit Vital Signs Most Recent Imported Vital Signs: Most Recent Vital Signs Temp Pulse Resp BP Pulse Ox 36.4 C L 70 16 99/51 L 99 01/04/24 14:02 01/04/24 14:02 01/04/24 14:02 01/04/24 14:02 01/04/24 14:02 Pain Score Most Recent Pain Score: Most Recent Pain Score Pain Level 0 01/04/24 14:02 Assessment Mental Status: Awake (Alert & Oriented to Patient Baseline) Airway and Respiratory Function: Patent airway with normal (patient baseline) respiratory exam Cardiovascular Function: Hemodynamically Stable Hydration Status: Adequately Hydrated Nausea & Vomiting: No Nausea or Vomiting Pain: Pt. Denies Any Pain Peripheral Nerve Block: Patient did not receive a nerve block
== END 2024-01-04 14:45 | disposition home or self-care (01) ==
PROVIDERS: PCP Nurse Practitioner Family; Visit Provider Surgery
PROC: 0DJD8ZZ Inspection of Lower Intestinal Tract, Via Natural or Artificial Opening Endoscopic (ICD-10-PCS; CPT 45378; principal; 2024-01-04 13:00)
DX: Z12.11 Encounter for screening for malignant neoplasm of colon (principal); Z80.0 Family history of malignant neoplasm of digestive organs; D12.2 Benign neoplasm of ascending colon; K57.30 Diverticulosis of large intestine without perforation or abscess without bleeding
CPT/HCPCS: 45385; 00123; 88305; J2003; J2405; J2704

== ENCOUNTER 2024-08-27 01:56 | Outpatient (CLI) | payer OTHER, SELFPAY ==
--- NOTE | 2024-08-27 07:15 | DI.DEXA_ITS ---
Exam(s) XR DEXA BONE DENSITY W/WO OJ EXAM: XR DEXA BONE DENSITY W/WO OJ CLINICAL HISTORY: screening postmenopausal status, strong family hx,z78.0 TECHNIQUE: COMPARISON: CR XR DEXA BONE DENSITY W/WO OJ from 12/09/2021 FINDINGS: Lateral Spine Image: Unremarkable. No compression deformities identified. Left hip: Total T-Score: -1.8. This compares to -1.5 on the prior examination. Total Z-Score: -0.7 T- and Z-scores: Findings are consistent with osteopenia. Lumbar Spine: Total T-Score: -1.6. This compares to -1.6 on the prior examination. Total Z-Score: -0.1 T- and Z-scores: Findings are consistent with osteopenia. IMPRESSION: No evidence of osteoporosis.
--- NOTE | 2024-08-27 07:15 | DI.MAMMO_ITS ---
Exam(s) MAMMO SCREENING EXAM: MAMMO SCREENING CLINICAL HISTORY: screening,z12.39 TECHNIQUE: Bilateral full field digital CC and MLO mammographic images were obtained with 3D tomosynthesis and utilizing computer aided detection (CAD). COMPARISON: Comparison is made with prior examinations. FINDINGS: Masses/Architectural Distortion: No suspicious masses or areas of architectural distortion are present. Microcalcifications: No suspicious pleomorphic-type are seen. Skin Thickening/Nipple Retraction: None. IMPRESSION: 1. No significant interval change with no specific features of malignancy noted. 2. Unless there is more urgent need, screening mammography is recommended, as per [place] [employer] guidelines. BI-RADS Category 1 - Negative Breast Density - Category C - The breast are heterogeneously dense, which may obscure small masses. Breast density Category C or D implies that the patient has dense breast tissue. Dense breast tissue can make it harder to find cancer on a mammogram. Dense breast tissue is also associated with an increased risk of breast cancer. This information about the result of the mammogram report was provided to the patient to raise their awareness. Use this report when you speak with the patient about their risks for breast cancer, which includes their family history. At that time, you may recommend additional screening tests (Ultrasound or MRI) as these tests may add significant information. A negative radiographic report should not delay biopsy if a dominant or clinically suspicious mass is present. Up to ten percent of cancers are not identified on mammography. A negative report may reinforce clinical impression. Adenosis and dense breasts may obscure an underlying neoplasm. False positive reports average 6 to 10%. Patient will receive a letter notifying them of these results.
== END 2024-08-27 02:16 ==
PROVIDERS: PCP Nurse Practitioner Family; Visit Provider Nurse Practitioner Family
DX: Z12.31 Encounter for screening mammogram for malignant neoplasm of breast (principal); Z78.0 Asymptomatic menopausal state; M85.89 Other specified disorders of bone density and structure, multiple sites
CPT/HCPCS: 77063; 77067; 77080